=== PATIENT | female | born 1940 | race Caucasian/White ===

== ENCOUNTER → 2018-11-13 | Outpatient (REF) | payer MEDICARE ==
[2018-11-13 13:03] LABS: C REACTIVE PROTEIN QUANTITATIV 1.81 MG/DL (0.00-0.30); RHEUMATOID FACTOR QUANT 30.3 IU/ML (<15.0)
[2018-11-17 00:06] LABS: ANTINUCLEAR ANTIBODIES DIRECT Negative (Negative); Lyme Disease IgG Ab 18 kDa Ban Absent (.); Lyme Disease IgG Ab 23 kDa Ban Absent (.); Lyme Disease IgG Ab 28 kDa Ban Absent (.); Lyme Disease IgG Ab 30 kDa Ban Absent (.); Lyme Disease IgG Ab 39 kDa Ban Absent (.); Lyme Disease IgG Ab 41 kDa Ban Present (.); Lyme Disease IgG Ab 45 kDa Ban Absent (.); Lyme Disease IgG Ab 58 kDa Ban Absent (.); Lyme Disease IgG Ab 66 kDa Ban Absent (.); Lyme Disease IgG Ab 93 kDa Ban Absent (.); Lyme Disease IgG West Blot Int Negative (.); Lyme Disease IgG/IgM Antibodie 1.02 ISR (0.00-0.90); Lyme Disease IgM Ab 23 kDa Ban Absent (.); Lyme Disease IgM Ab 39 kDa Ban Absent (.); Lyme Disease IgM Ab 41 kDa Ban Absent (.); Lyme Disease IgM Ab Quantitati <0.80 index (0.00-0.79); Lyme Disease IgM West Blot Int Negative (.)
== END ==
LOC: M LAB REF 12:22
PROVIDERS: ATTEND Internal Medicine
DX: M15.9 Polyosteoarthritis, unspecified (principal)

== ENCOUNTER → 2018-12-16 | Outpatient (REF) | payer MEDICARE | LOC: M LAB REF 17:37 | PROVIDERS: ATTEND Internal Medicine | DX: M15.9 Polyosteoarthritis, unspecified (principal) ==

== ENCOUNTER → 2019-04-29 | Outpatient (CLI) | payer MEDICARE ==
--- NOTE | 2019-04-29 12:10 | REP ---
Right hand four views: There is mild joint space narrowing of the PIP and DIP joints. The MCP articulations and carpal articulations are unremarkable. There is no fracture or dislocation. There are no calcifications. 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 Left hand four views : There is mild PIP and DIP joint space narrowing. The MCP articulations and carpal articulations are unremarkable. There are no calcifications. There is no fracture or dislocation. 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 Electronically Signed by Filipe Pace MD 04/29/2019 12:02 P
--- NOTE | 2019-04-29 12:12 | REP ---
Right foot four views: There are no comparisons. There is mild PIP and DIP joint space narrowing. There is mild osteoarthritis at the great toe MTP joint. The remainder of the MTP joints are unremarkable. The tarsal articulations are unremarkable. 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 Electronically Signed by Filipe Pace MD 04/29/2019 12:04 P
[2019-04-29 13:44] LABS: BASO # 0.1 10^3/uL (0.0-0.2); BASO % 0.5 % (0.0-1.0); EOS % 0.3 % (0.0-3.0); HEMATOCRIT 44.6 % (36.0-47.0); HEMOGLOBIN 14.4 g/dl (12.0-15.5); LYMPH # 0.9 10^3/uL (1.5-5.0); LYMPH % 8.3 % (24.0-44.0); MEAN CORPUSCULAR HEMOGLOBIN 31.6 pg (27.0-33.0); MEAN CORPUSCULAR HGB CONC 32.3 g/dl (32.0-36.5); MEAN CORPUSCULAR VOLUME 97.8 fl (80.0-96.0); MONO # 0.2 10^3/uL (0.0-0.8); MONO % 2.1 % (0.0-5.0); NEUTROPHILS # 9.4 10^3/uL (1.5-8.5); NEUTROPHILS % 88.4 % (36.0-66.0); PLATELET COUNT, AUTOMATED 268 10^3/uL (150-450); RED BLOOD COUNT 4.56 10^6/uL (4.00-5.40); WHITE BLOOD COUNT 10.6 10^3/uL (4.0-10.0)
[2019-04-29 14:20] LABS: ALBUMIN 3.6 GM/DL (3.2-5.2); ALT/SGPT 39 U/L (12-78); BILIRUBIN,TOTAL 0.3 MG/DL (0.2-1.0); BLOOD UREA NITROGEN 18 MG/DL (7-18); C REACTIVE PROTEIN QUANTITATIV < 0.30 MG/DL (0.00-0.30); CALCIUM LEVEL 9.2 MG/DL (8.8-10.2); CARBON DIOXIDE LEVEL 30 MEQ/L (21-32); CHLORIDE LEVEL 103 MEQ/L (98-107); CREATININE FOR GFR 1.14 MG/DL (0.55-1.30); ERYTHROCYTE SEDIMENTATION RATE 9 mm/hr (0-30); GLOMERULAR FILTRATION RATE 48.8 (>32); GLUCOSE, FASTING 339 MG/DL (70-100); RHEUMATOID FACTOR QUANT 18.3 IU/ML (<15.0); SODIUM LEVEL 141 MEQ/L (136-145); TOTAL PROTEIN 6.9 GM/DL (6.4-8.2); URIC ACID 5.1 MG/DL (2.6-6.0)
== END ==
LOC: M SMT 11:21
PROVIDERS: ATTEND Internal Medicine Rheumatology
DX: M19.071 Primary osteoarthritis, right ankle and foot (principal); M19.041 Primary osteoarthritis, right hand; M19.042 Primary osteoarthritis, left hand
CPT/HCPCS: 36415; 73130; 73630; 80053; 84550; 85025; 85652; 86140; 86200; 86431; G0463

== ENCOUNTER → 2019-05-04 | Outpatient (REF) | payer MEDICARE | LOC: M LAB REF 12:24 | PROVIDERS: ATTEND Internal Medicine | DX: M15.9 Polyosteoarthritis, unspecified (principal) ==

== ENCOUNTER → 2019-05-27 | Outpatient (REF) | payer MEDICARE | LOC: M LAB REF 12:18 | PROVIDERS: ATTEND Internal Medicine | DX: M06.9 Rheumatoid arthritis, unspecified (principal) ==

== ENCOUNTER → 2024-04-09 | Outpatient (CLI) | payer MEDICARE | LOC: M WUC 08:49 | PROVIDERS: ATTEND Internal Medicine | DX: R06.2 Wheezing (principal) ==